=== PATIENT | male | born 1995 | race Caucasian/White ===

== ENCOUNTER 2016-10-18 00:19 | Emergency (ER) | payer SELFPAY ==
[~2016-10-18] VITALS: Ht 165.1 cm; Wt 85.0 kg
[~2016-10-18 00:19] MED LIST: IBUP800T23 PO
[2016-10-18] MEDS ORDERED: LORazepam 2 MG/ML VIAL ONE (00:27)
[2016-10-18] MEDS ORDERED: HALOPERIDOL LACTATE 5 MG/ML AMP ONE (00:27)
[2016-10-18] MEDS ORDERED: diphenhydrAMINE HCL 50 MG/ML VIAL ONE (00:27)
[2016-10-18] MEDS ORDERED: HALOPERIDOL LACTATE 5 MG/ML AMP IM ONE (00:30)
[2016-10-18] MEDS ORDERED: diphenhydrAMINE HCL 50 MG/ML VIAL IM ONE (00:30)
[2016-10-18] MEDS ORDERED: LORazepam 2 MG/ML VIAL IM ONE (00:30)
--- NOTE | 2016-10-18 00:49 | PD ---
HPI . Intoxication Chief Complaint: Alcohol/Drug Intoxication Time Seen by Provider: 00:26 Travel History International Travel<30 days: No Contact w/Intl Traveler<30days: No Traveled to known affect area: No History of Present Illness HPI This patient was brought to us via [facility] with the chief complaint of apparent intoxication. [facility] reports that the patient was found passed out outside somewhere. They were called to the scene and rolled him over to assess his situation. He then became combative. He was subsequently brought to us for treatment. No further history is available. The patient is refusing to cooperate with history and physical exam. [facility] Past Medical History Medical History: Unable to Obtain Past Surgical History Surgical History: Unable to Obtain Social History Alcohol Use: Yes (UNABLE TO OBTAIN) Tobacco Use: Yes (UNABLE TO OBTAIN) Substance Use: No (UNABLE TO OBTAIN) Allergies-Medications (Allergen,Severity, Reaction): Coded Allergies: No Known Allergies (Unverified , 10/18/16) Reported Meds & Prescriptions Reported Meds & Active Scripts Active Active Prescriptions or Reported Medications Unobtainable Review of Systems ROS Limitations: Intoxication, Uncooperative, Combative Physical Exam Exam Limitations: Intoxication, Uncooperative, Combative Narrative GENERAL: The patient is flailing all over the stretcher. He now has blood in his mouth where he has been biting the bar of the stretcher. SKIN: Warm and dry. No obvious skin trauma that I can see. HEAD: Atraumatic. Normocephalic. Head exam is negative with the exception of blood in his mouth. EYES: Pupils equal and round. Extraocular movements are intact. NECK: Trachea midline. He is moving his neck freely without any apparent pain. CARDIOVASCULAR: Regular rate and rhythm. RESPIRATORY: No accessory muscle use. MUSCULOSKELETAL: No obvious deformities. No edema. NEUROLOGICAL: Awake and alert. No obvious cranial nerve deficits. Motor grossly within normal limits. PSYCHIATRIC: Combative, uncooperative. Data Data Last Documented VS Vital Signs Date Time Temp Pulse Resp B/P Pulse Ox O2 Delivery O2 Flow Rate FiO2 10/18/16 05:00 82 16 104/57 97 Room Air 10/18/16 01:00 98.0 Orders Haloperidol Inj (Haldol Inj) (10/18/16 00:30) Diphenhydramine Inj (Benadryl Inj) (10/18/16 00:30) Restraints Non-Violent DAVID.Q3H (10/18/16 00:26) Lorazepam Inj (Ativan Inj) (10/18/16 00:30) Diphenhydramine Inj (Benadryl Inj) (10/18/16 00:27) Haloperidol Inj (Haldol Inj) (10/18/16 00:27) Lorazepam Inj (Ativan Inj) (10/18/16 00:27) MDM Medical Decision Making Medical Screen Exam Complete: Yes Emergency Medical Condition: Yes Differential Diagnosis Differential diagnosis of altered mental status includes but is not limited to infection, electrolyte abnormality, neurological event, intoxication Narrative Course This patient is brought to us via [facility] after being found passed out on the ground outside somewhere. He subsequently became very agitated. He continues to be very agitated in the emergency department. He has been restrained for his own safety and for the safety of the staff. He has been medicated with Ativan, Haldol and Benadryl. The patient has been sleeping since being medicated. He will be discharged when he awakens. Diagnosis Primary Impression: Intoxication by drug Qualified Code: F19.920 - Intoxication by drug, uncomplicated Scripts Unable to Obtain Active Prescriptions or Reported Meds Disposition: DISCHARGE HOME Condition: Stable Mariely Peterson MD Oct 18, 2016 00:49
[2016-10-18 01:00] VITALS: BP 118/58; PULSE 74; RESP 16; TEMP 98; O2SAT 97
[2016-10-18 02:00] VITALS: BP 115/62; PULSE 94; RESP 18; O2SAT 97
[2016-10-18 04:00] VITALS: BP 110/66; PULSE 87; RESP 16; O2SAT 97
[2016-10-18 05:00] VITALS: BP 104/57; PULSE 82; RESP 16; O2SAT 97
[2016-10-18 06:00] VITALS: BP 106/64; PULSE 64; RESP 14; O2SAT 100
[2016-10-18 08:00] VITALS: BP 109/63; PULSE 78; RESP 14; O2SAT 97
== END 2016-10-18 09:25 | disposition home or self-care (01) ==
LOC: NEPE 00:19
DX: F19.920 Other psychoactive substance use, unspecified with intoxication, uncomplicated (principal)
CPT/HCPCS: 96372; 99285; J1200; J1630; J2060

== ENCOUNTER 2017-05-03 09:08 | Emergency (ER) | payer SELFPAY ==
[~2017-05-03] VITALS: Ht 177.8 cm; Wt 90.5 kg
[2017-05-03 09:11] VITALS: BP 147/80; PULSE 105; RESP 14; TEMP 98.3; O2SAT 100
[2017-05-03] MEDS ORDERED: ACETAMINOPHEN/HYDROcodone 325 MG/5 MG TAB PO ONE (09:30)
--- NOTE | 2017-05-03 10:08 | PD ---
HPI Chief Complaint: Injury Time Seen by Provider: 09:25 Travel History International Travel<30 days: No Contact w/Intl Traveler<30days: No Traveled to known affect area: No History of Present Illness HPI This is a 22-year-old male who presents to the emergency department with left foot pain, constant, severe that woke him up from sleep in the middle the night , mostly on the top of his foot. He thinks he might have hit his foot when he came home from work last night but he is not sure. He has had a history of surgery in that leg and has hardware in the leg but not the foot itself. He denies any fevers or chills. PFSH Past Medical History Medical History: Denies Significant Hx Diminished Hearing: No Tetanus Vaccination: > 5 Years Social History Alcohol Use: Yes (occ) Tobacco Use: Yes Substance Use: No Allergies-Medications (Allergen,Severity, Reaction): Coded Allergies: No Known Allergies (Unverified Adverse Reaction, Unknown, 05/03/17) Reported Meds & Prescriptions Reported Meds & Active Scripts Active No Active Prescriptions or Reported Medications Review of Systems General / Constitutional: No: Fever, Chills Cardiovascular: No: Chest Pain or Discomfort Respiratory: No: Shortness of Breath Physical Exam Narrative GENERAL: Well-appearing, no acute distress, nontoxic SKIN: Scattered papular rash on the dorsal aspect of the foot. HEAD: Atraumatic. Normocephalic. ENT: No nasal bleeding or discharge. Moist mucous membranes Vascular: 2+ left DP pulse with normal capillary refill MUSCULOSKELETAL: Tender to palpation along the dorsal aspect of the left lateral foot. No medial or lateral malleolus tenderness. NEUROLOGICAL: Awake and alert. No obvious cranial nerve deficits. Moving all extremities. PSYCHIATRIC: Appropriate mood and affect; insight and judgment normal. Data Data Last Documented VS Vital Signs Date Time Temp Pulse Resp B/P (MAP) Pulse Ox O2 Delivery O2 Flow Rate FiO2 05/03/17 09:11 98.3 105 14 147/80 (102) 100 Orders Orders Foot, Complete ([id number]) (05/03/17 ) Acetamin-Hydrocod 325-5 Mg ([place] 5-325 (05/03/17 09:30) MDM Medical Decision Making Medical Screen Exam Complete: Yes Emergency Medical Condition: Yes Interpretation(s) xray foot: no acute process Differential Diagnosis Foot contusion, metatarsal fracture, foot sprain Narrative Course This is a 22-year-old male who presents to the emergency department with some pain in the left foot. He thinks he might have banged it last night but is not sure. He does have a rash on the top of his foot which he thinks is from some new boots. X-rays reassuring with no evidence of fracture. Patient was given pain control in the emergency department. I think he can be discharged he likely has a foot contusion. Diagnosis Primary Impression: Foot contusion Qualified Codes: S90.32XA - Contusion of left foot, initial encounter Referrals: Elizabeth Zepeda DPM Patient Instructions: General Instructions Additional Instructions: If you develop numbness, weakness or severe pain in your foot return to the emergency room. Follow-up with a ticket maker if you not improved in 1 week. Med/Other Pt SpecificInfo: Prescription(s) given Scripts Naproxen (Naproxen) 500 Mg Tab 500 MG PO BID Y for PAIN SCALE 4 TO 10, #20 TAB 0 Refills Prov: Holly Constantino MD 05/03/17 Disposition: 01 DISCHARGE HOME Condition: Stable Holly Constantino MD May 03, 2017 10:08
--- NOTE | 2017-05-03 10:26 | RADRPT ---
EXAM DATE/TIME: 05/03/2017 09:58 [facility] COMPARISON: No previous studies available for comparison. INDICATIONS : Left foot pain since last night after patient hit foot on stairs MEDICAL HISTORY : None. SURGICAL HISTORY : ORIF left ankle ENCOUNTER: Initial ACUITY: 1 day PAIN SCORE: 8/10 LOCATION: Left dorsal surface of foot FINDINGS: Three view examination of the left foot demonstrates no soft tissue swelling, dislocation, or fractur e. The tarsal bones appear intact. The interphalangeal and metatarsophalangeal joints are intact. The calcaneus is intact. Bony mineralization is normal. CONCLUSION: No evidence of fracture. Betty Mccray MD on May 03, 2017 at 10:23 Board Certified Radiologist. This report was verified electronically.
[2017-05-03] MEDS ORDERED: NAPR500T2 PO (10:37)
== END 2017-05-03 10:52 | disposition home or self-care (01) ==
LOC: NEPD 09:08
DX: S90.32XA Contusion of left foot, initial encounter (principal); X58.XXXA Exposure to other specified factors, initial encounter; Z72.0 Tobacco use
CPT/HCPCS: 73630; 99283

== ENCOUNTER 2017-06-30 08:23 | Emergency (ER) | payer SELFPAY ==
[~2017-06-30] VITALS: Ht 180.3 cm; Wt 94.6 kg
[~2017-06-30 08:23] MED LIST changes: -IBUP800T23 PO; +NAPR500T2 PO
[2017-06-30 08:33] VITALS: BP 193/107; PULSE 92; RESP 16; TEMP 97.7; O2SAT 99
[2017-06-30 10:21] VITALS: BP 140/79
--- NOTE | 2017-06-30 11:10 | PD ---
HPI Chief Complaint: Laceration/Skin Injury Time Seen by Provider: 10:47 Travel History International Travel<30 days: No Contact w/Intl Traveler<30days: No Traveled to known affect area: No History of Present Illness HPI This 22-year-old male says he fell last night. He hit his head and sustained a laceration of the scalp. He is been having a headache since then. He is concerned that he might have injury to his brain or head. He does have a laceration . He is generally healthy with no allergies. PFSH Past Medical History Asthma: Yes (as a child) Diminished Hearing: No Tetanus Vaccination: > 5 Years Influenza Vaccination: No Past Surgical History Eye Surgery: Yes (both eye for tear duct opening) Social History Alcohol Use: Yes (occas. beer) Tobacco Use: Yes (/ ppd) Substance Use: No (denies) Allergies-Medications (Allergen,Severity, Reaction): Coded Allergies: No Known Allergies (Unverified Adverse Reaction, Unknown, 06/30/17) Reported Meds & Prescriptions Reported Meds & Active Scripts Active No Active Prescriptions or Reported Medications Review of Systems General / Constitutional: No: Fever, Chills Eyes: No: Diploplia, Blurred Vision HENT: Positive: Headaches Cardiovascular: No: Chest Pain or Discomfort, Palpitations Respiratory: No: Cough, Shortness of Breath Gastrointestinal: No: Vomiting, Diarrhea Genitourinary: No: Urgency, Frequency Musculoskeletal: No: Myalgias, Arthralgias Skin: No Rash Endocrine: No: Heat Intolerance, Cold Intolerance Hematologic/Lymphatic: No: Easy Bruising Physical Exam Narrative GENERAL: Well-developed male SKIN: Focused skin assessment warm/dry. HEAD: There is a 2 cm laceration in the right vital area of the scalp there is slight separation of the wound edges normocephalic. EYES: Pupils equal and round. No scleral icterus. No injection or drainage. ENT: No nasal bleeding or discharge. Mucous membranes pink and moist. NECK: Trachea midline. No JVD. CARDIOVASCULAR: Regular rate and rhythm. No murmur appreciated. RESPIRATORY: No accessory muscle use. Clear to auscultation. Breath sounds equal bilaterally. GASTROINTESTINAL: Abdomen soft, non-tender, nondistended. Hepatic and splenic margins not palpable. MUSCULOSKELETAL: No obvious deformities. No clubbing. No cyanosis. No edema. NEUROLOGICAL: Awake and alert. No obvious cranial nerve deficits. Motor grossly within normal limits. Normal speech. PSYCHIATRIC: Appropriate mood and affect; insight and judgment normal. Data Data Last Documented VS Vital Signs Date Time Temp Pulse Resp B/P (MAP) Pulse Ox O2 Delivery O2 Flow Rate FiO2 06/30/17 10:21 140/79 (99) 06/30/17 08:33 97.7 [address] Brain W/O Iv Contrast(Rout) (06/30/17 11:08) Tetanus/Diphtheria Tox Adult (Tetanus/Di (06/30/17 11:15) Wound Care (06/30/17 11:10) MDM Medical Decision Making Medical Screen Exam Complete: Yes Emergency Medical Condition: Yes Medical Record Reviewed: Yes Differential Diagnosis Differential includes scalp laceration, closed head injury, skull fracture, subdural Narrative Course CT scan has been done and is negative for fracture or subdural. Laceration is over 8 hours old and the edges are not widely . He will be released without any repair of the laceration Diagnosis Primary Impression: Laceration of scalp Scripts No Active Prescriptions or Reported Meds Disposition: 01 DISCHARGE HOME Condition: Stable Manuel Garcia MD Jun 30, 2017 11:10
[2017-06-30] MEDS ORDERED: TETANUS/DIPHTHERIA TOXOID ADULT 0.5 ML VIAL IM ONE (11:15)
--- NOTE | 2017-06-30 11:40 | RADRPT ---
EXAM DATE/TIME: 06/30/2017 11:27 [facility] COMPARISON: CT BRAIN W/O CONTRAST, January 20, 2017, 0:37. INDICATIONS : Fell yesterday. Right scalp injury. RADIATION DOSE: 55.95 CTDIvol (mGy) MEDICAL HISTORY : Asthma. SURGICAL HISTORY : None. ENCOUNTER: Initial ACUITY: 2 days PAIN SCALE: 10/10 LOCATION: Right cranial TECHNIQUE: Multiple contiguous axial images were obtained of the head. Using automated exposure control and adj ustment of the mA and/or kV according to patient size, radiation dose was kept as low as reasonably a chievable to obtain optimal diagnostic quality images. DICOM format image data is available electro nically for review and comparison. FINDINGS: CEREBRUM: The ventricles are normal for age. No evidence of midline shift, mass lesion, hemorrhage or acute in farction. No extra-axial fluid collections are seen. POSTERIOR FOSSA: The cerebellum and brainstem are intact. The 4th ventricle is midline. The cerebellopontine angle i s unremarkable. EXTRACRANIAL: The visualized portion of the orbits is intact. SKULL: The calvaria is intact. No evidence of skull fracture. CONCLUSION: No acute disease. Tramaine Perez MD on June 30, 2017 at 11:36 Board Certified Radiologist. This report was verified electronically.
[2017-06-30 12:12] VITALS: BP 151/83
== END 2017-06-30 12:15 | disposition home or self-care (01) ==
LOC: PHED 08:23
DX: S01.01XA Laceration without foreign body of scalp, initial encounter (principal); W19.XXXA Unspecified fall, initial encounter; J45.909 Unspecified asthma, uncomplicated; F17.200 Nicotine dependence, unspecified, uncomplicated; Z23 Encounter for immunization
CPT/HCPCS: 70450; 90471; 90714